=== PATIENT | female | born 1995 | race Caucasian/White ===

== ENCOUNTER 2017-03-30 07:26 | Emergency (ER) | payer OTHER, BC ==
[~2017-03-30] VITALS: Ht 154.9 cm; Wt 64.2 kg
[2017-03-30] MEDS ORDERED: METFORMIN HCL500 MG PO (07:44)
[2017-03-30 08:19] VITALS: BP 138/93
== END 2017-03-30 08:20 | disposition home or self-care (01) ==
LOC: EME 07:26
DX: S61.211A Laceration without foreign body of left index finger without damage to nail, initial encounter (principal); W26.0XXA Contact with knife, initial encounter; Y99.0 Civilian activity done for income or pay; Z23 Encounter for immunization
CPT/HCPCS: 99281; 99284